=== PATIENT | male | born 1970 | race African-American/Black ===

== ENCOUNTER 2017-06-10 10:02 | Emergency (ER) | payer BC ==
[~2017-06-10] VITALS: Ht 180.3 cm; Wt 90.0 kg
[2017-06-10 10:03] VITALS: BP 121/68
[2017-06-10] MEDS ORDERED: CYCLOBENZAPRINE 10MG TABLET PO ONE (10:45)
[2017-06-10] MEDS ORDERED: KETOROLAC 60MG/2ML VIAL IM ONE (10:45)
[2017-06-10 11:09] LABS: CLARITY URINE CLEAR (CLEAR); COLOR URINE YELLOW (YELLOW); GLUCOSE URINE NEGATIVE (NEGATIVE); KETONES URINE NEGATIVE (NEGATIVE); LEUKOCYTE ESTERASE URINE NEGATIVE (NEGATIVE); NITRITE URINE NEGATIVE (NEGATIVE); OCCULT BLOOD URINE NEGATIVE (NEGATIVE); PH URINE 8.5 (4.5-8.0); PROTEIN URINE NEGATIVE (NEGATIVE); SPECIFIC GRAVITY URINE 1.018 (1.005-1.030); UROBILINOGEN URINE 0.2 E.U./dL (0.2-1.0)
== END 2017-06-10 12:18 | disposition home or self-care (01) ==
LOC: ER 10:09
DX: M62.830 Muscle spasm of back (principal)
CPT/HCPCS: 81003; 96372; 99283; J1885